=== PATIENT | female | born 1980 | race African-American/Black ===

== ENCOUNTER 2023-09-28 10:07 | Emergency (ER) | payer SELFPAY ==
[2023-09-28] MEDS ORDERED: Ondansetron ODT 4 MG TAB ONE (10:57)
== END 2023-09-28 11:05 | disposition home or self-care (01) ==
LOC: MADERS 10:07
DX: R11.10 Vomiting, unspecified (principal); R19.7 Diarrhea, unspecified
CPT/HCPCS: 99283; Q0162